=== PATIENT | female | born 1970 | race Caucasian/White ===

== ENCOUNTER 2017-05-02 16:03 | Observation (INO) | payer BC ==
[~2017-05-02] VITALS: Ht 152.4 cm; Wt 79.5 kg
--- NOTE | ~2017-05-02 | OP ---
PATIENT NAME: ALALN ALANIZ MEDICAL RECORD: [id number] :66 LOCATION:D.M2 D.2117 ADMISSION DATE:05/02/17 SURGEON: ALEX ANDUJAR MD DATE OF OPERATION: 05/03/2017 PROCEDURE: Left heart cath, plus 4-vessel arteriography, right femoral artery approach. CATHETERS: A 5-Portuguese sheath, 5/4 left and right Felipe, 5/4 pig. The procedure was well tolerated and the patient returned to martel, sheath removed. ExoSeal device was placed. FINDINGS: Left ventriculography in 30-degree DRIVER view: Normal wall motion, normal systolic function. CORONARY ANATOMY. LEFT MAIN: Left main is free of disease. LAD: Free of disease in the diagonal system. CIRCUMFLEX: Free of disease in the marginal system. RIGHT CORONARY ARTERY: Codominant system, free of disease. The right common carotid was selectively engaged and shows smooth-walled vessel, free of disease. The right external carotid is a smooth-walled vessel, free of disease. Right internal carotid is a smooth-walled vessel, free of disease. The Left common carotid was selectively engaged and shows smooth-walled vessel, free of disease. Left external carotid, smooth-walled vessel, free of disease. Left internal carotid, smooth-walled vessel, free of disease. IMPRESSION: Normal 4-vessel arteriography, normal diagnostic angiography, noncardiac cause of chest pain, syncope, suspect elevated troponins were secondary to IVVD. TRANSINT:[id number] Voice Confirmation ID: [id number] DOCUMENT ID: [id number] ALEX ANDUJAR MD CC: [id number] DICTATION DATE: 05/03/17901 KNOCKDOWN WORKER: 05/03/17 1036 ADM IN [facility] [id number] [place] [address]
--- NOTE | ~2017-05-02 | HEMODYNAMI ---
PATIENT:ALLAN ALANIZ MEDICAL RECORD: [id number] : 66 LOCATION:[facility].2117 ADMISSION DATE: 05/02/17 Generatedon:05/03/20178:58 Patient name: ALLAN ALANIZ Patient #: [id number] SSN: : 1970 Date of study: 05/03/2017 Page: Of Hemodynamic Procedure Report Patient Data Patient Demographics Procedure consent was obtained First Name: ALLAN Gender: Female Last Name: CORBIN : 1970 Patient #: [id number] Age: 47 year(s) Race: Accession #: Ethnicity: or [id number] Additional ID: [id number] Contact details [address]: [address] [place] [address] State: [place] City: [place] Zip code: [address] Past Medical History Allergies Allergen Reaction Date Comments Reported Other allergy 05/03/2017 N Admission Admission Data Admission Date: 05/02/2017 Admission Time: 16:03 Room #: D.2117 Lab Results Lab Result Date: 05/03/2017 Lab Result Time: 7:21 Biochemistry Name Units Result Min Max BUN mg/dl 12 --(-*--)-- 7 18 Creatinine mg/dl 1 --(--*-)-- 0.6 1.3 CBC Name Units Result Min Max Hematocrit % 43.1 --(*---)-- 42 54 Hemoglobin g/dl 14.3 --(*---)-- 13.5 17.5 Procedure Procedure Types Cath Procedure Diagnostic Procedure LHC LHC w/Coronaries Miscellaneous Procedures Moderate Sedation up to 30 minutes Peripheral Cath Diagnostic Procedure Cath Peripheral Four Vessel Arteriogram Procedure Description Procedure Date Procedure Date: 05/03/2017 Procedure Start Time: 8:39 Procedure End Time: 8:55 Procedure Staff Name Function Eliel Villela MD Performing Physician Celia Gómez RT Scrub German Kelley RT Scrub Benjamin Donaldosn RT Monitor Tirea Barnes RN Nurse Procedure Data Cath Procedure Fluoroscopy Diagnostic fluoroscopy Total fluoroscopy Time: 2 time: 2 min min Diagnostic fluoroscopy Total fluoroscopy dose: 252 dose: 252 mGy mGy Contrast Material Contrast Material Type Amount (ml) Isovue 300 73 Entry Location Entry Primary Successful Side Size Upsize Upsize Entry Closure Succes sful Closure Location (Fr) 1 (Fr) 2 (Fr) Remarks Device Remarks Femoral Right 5 Fr Exoseal artery Estimated blood loss: 5 ml Diagnostic catheters Device Type Used For End Catheter Placement Cordis 5Fr JL 4.0 Procedure Catheter (MP) Cordis 5Fr 3DRC Catheter Procedure (MP) Cordis 5Fr Pigtail Procedure Catheter (MP) Procedure Complications No complications Procedure Medications Medication Administration Route Dosage Oxygen NC 2 l/min Fentanyl I.V. 50 mcg Versed I.V. 1 mg Zofran I.V. 4 mg Fentanyl I.V. 25 mcg Versed I.V. 0.5 mg Hemodynamics Rest HGB: 14.3 (g/dl) Heart Rate: 73 (bpm) Pressure Samples Time Site Value (mmHg) Purpose Heart Use Rate(bpm) 8:52 LV 124/12,17 EDP 85 8:52 AO 131/85(107) Pullback 88 8:52 LV 115/17,19 Pullback 88 Gradients Valve Time Site 1 Site 2 Mean SEP/DFP Peak To Heart Use (mmHg) (sec/min) Peak Rate (mmHg) (bpm) Aortic 8:52 LV AO 0 11 0 88 115/17,19 131/85(107) Calculations Valve P-P Mean Valve Index Valve Source Name Gradient Area Flow (cm2) Aortic 0 0 0 0 Snapshots Pre Cath Intra NCS Post Cath Vital Signs Time Heart Resp SPO2 etCO2 GT0fcea NIBP (mmHg) Rhythm Pain Sedation Rate (ipm) (%) (mmHg) (mmHg) Status Level (bpm) 8:21:31 57 16 100 0 0 140/83(121) NSR 0 (11) 10(A) , No pain 8:26:14 79 17 100 0 0 136/88(116) NSR 0 (11) 10(A) , No pain 8:30:56 82 16 100 0 0 123/85(102) NSR 0 (11) 10(A) , No pain 8:35:37 85 16 100 0 0 124/85(99) NSR 0 (11) 10(A) , No pain 8:40:17 87 18 100 0 0 120/72(97) NSR 0 (11) 9(A) , No pain 8:45:00 78 20 100 0 0 114/76(93) NSR 0 (11) 9(A) , No pain 8:49:41 85 20 100 0 0 124/77(94) NSR 0 (11) 9(A) , No pain 8:54:23 84 18 100 0 0 112/78(98) NSR 0 (11) 9(A) , No pain Medications Time Medication Route Dose Verified Delivered Reason Notes Effectivene ss by by 8:25:58 Oxygen NC 2 Tiera Tiera used for l/min Barnes Barnes tumbler tender RN 8:39:01 Fentanyl I.V. 50 Tiera Tiera for mcg Barnes Barnes sedation RN RN 8:39:08 Versed I.V. 1 mg Tiera Tiera for Barnes Barnes sedation RN RN 8:39:18 Zofran I.V. 4 mg Tiera Tiera Per Barnes Barnes physician RN RN 8:40:37 Fentanyl I.V. 25 Tiera Tiera for mcg Barnes Barnes sedation RN RN 8:40:41 Versed I.V. 0.5 Tiera Tiera for mg Barnes Barnes sedation RN superintendent of generation Log Time Note 8:02:46 Informed consent obtained and on chart 8:02:53 Diagnostic Cath Status : Elective 8:04:04 Reinaldo Rodgers RT(R) (CV) sent for patient. Start room use. 8:04:06 Time tracking: Regular hours 8:04:12 Plan of Care:Hemodynamics will remain stable., Cardiac rhythm will remain stable., Comfort level will be maintained., Respiratory function will remain adequate., Patient/ family verbilizes understanding of procedure., Procedure tolerated without complication., Recovers from procedure without complications.. 8:16:16 Patient received from Med II to CCL 1 Alert and oriented. Tansferred to table in Supine position. 8:16:17 Warm blankets applied, and samy hugger turned on for patient comfort. 8:16:18 Correct patient and procedure confirmed by team. 8:16:19 ECG and BP/O2 sat monitors applied to patient. 8:17:01 H&P Date Dictated: 04/02/2017 Within 30 days and on chart.. 8:17:03 Pre-procedure instructions explained to patient. 8:17:03 Pre-op teaching completed and patient verbalized understanding. 8:17:04 Family in patients room. 8:17:10 Patient NPO since Midnight. 8:17:29 Patient allergic to Other allergyPCN 8:17:31 Is the patient allergic to Iodine/contrast media? No. 8:17:32 Is patient on blood thinner?No 8:17:33 Patient diabetic? No. 8:17:36 Previous problem with sedation/anesthesia? No ? 8:17:37 Snore? Yes 8:17:38 Sleep apnea? Yes 8:17:39 Deviated septum? No 8:17:40 Opens mouth fully? Yes 8:17:41 Sticks out tongue? Yes 8:17:42 Airway obstruction? No ? 8:17:43 Dentures? No ? 8:18:00 Patient pain scale 0/10 ?. 8:18:06 IV patent on arrival in left antecubital with 0.9% NaCl at [facility]. 8:18:32 Lab Result : BUN 12 mg/dl 8:18:32 Lab Result : Creatinine 1 mg/dl 8:18:35 Lab results completed and on chart. 8:18:37 Right groin area was prepped with chlora-prep and draped in sterile fashion 8:18:38 Alarms reviewed by R. N. 8:18:39 Sharps counted by scrub and verified by R.N. 8:18:41 Use device set Femoral Dx 8:18:42 Tegaderm 4 x 4 opened to sterile field. 8:18:43 Acist Manifold opened to sterile field. 8:18:43 Acist Hand Control opened to sterile field. 8:18:44 Acist Syringe opened to sterile field. 8:18:45 Bag Decanter opened to sterile field. 8:18:45 Medline Cath Pack opened to sterile field. 8:18:46 Terumo 5Fr Radford Sheath opened to sterile field. 8:18:46 St Devin 260cm J .035 wire opened to sterile field. 8:18:47 Diagnostic Infinity 5Fr Multipack catheter opened to sterile field. 8:20:36 Vital chart was started 8:20:38 Baseline sample Acquired. 8:20:42 Rhythm: sinus rhythm 8:25:58 Oxygen 2 l/min NC was administered by Tiera Barnes RN; used for procedure; 8:33:49 Zero performed for pressure channel P1 8:35:43 IV Extension Set opened to sterile field. 8:35:48 Physician arrived 8:35:48 --------ALL STOP TIME OUT------ 8:35:48 Final Timeout: patient, procedure, and site verified with staff and physician. All members of the team are in agreement. 8:35:50 Right groin site verified by team. 8:35:52 Physical assessment completed. ASA score P 2 - A patient with mild systemic disease as per Eliel Villela MD. 8:35:55 Sedation plan: IV Moderate Sedation Versed, Fentanyl 8:39:01 Fentanyl 50 mcg I.V. was administered by Tiera Barnes RN; for sedation; 8:39:08 Versed 1 mg I.V. was administered by Tiera Barnes RN; for sedation; 8:39:18 Zofran 4 mg I.V. was administered by Tiera Barnes RN; Per physician; 8:39:44 Procedure started. 8:39:45 Full Disclosure recording started 8:39:47 Local anesthetic to right femoral artery with Lidocaine 2% by Eliel Villela MD.INITIAL ACCESS ONLY 8:40:34 A 5 Fr sheath was inserted into the Right Femoral artery 8:40:37 Fentanyl 25 mcg I.V. was administered by Tiera Barnes RN; for sedation; 8:40:41 Versed 0.5 mg I.V. was administered by Tiera Barnes RN; for sedation; 8:47:00 Use device set Multipack Set 8:47:04 A Cordis 5Fr JL 4.0 Catheter (MP) was advanced over the wire and used for Procedure. 8:47:08 LCA angiography performed. 8:47:48 Catheter exchanged over wire. 8:47:58 A Cordis 5Fr 3DRC Catheter (MP) was advanced over the wire and used for Procedure. 8:49:00 RCA angiography performed. 8:49:08 Lab Result : Hemoglobin 14.3 g/dl 8:49:08 Lab Result : Hematocrit 43.1 % 8:49:26 Right carotid angiography performed. 8:50:17 Left carotid angiography performed. 8:50:46 Catheter exchanged over wire. 8:50:50 A Cordis 5Fr Pigtail Catheter (MP) was advanced over the wire and used for Procedure. 8:52:00 Cordis 5Fr Exoseal opened to sterile field. 8:52:14 LV gram done using DRIVER 8:52:20 Injector settings: Ml/sec: 10, Volume: 20, 8:52:24 EF : 60 % 8:52:32 Catheter removed. 8:52:43 Sheath removed intact; hemostasis achieved with Exoseal to the Right Femoral artery. 8:52:54 Procedure ended.(Physican Out) 8:54:20 Fluoroscopy time 02.00 minutes. 8:54:23 Fluoroscopy dose: 252 mGy 8:54:23 Flurop Dose total: 252 8:54:27 Contrast amount:Isovue 300 73ml. 8:54:28 Sharps counted by scrub and verified by R.N. 8:54:29 Insertion/operative site no bleeding no hematoma. 8:54:32 Post-op/insertion site Right Femoral artery dressed using a 4 x 4 and Tegaderm. 8:54:35 Post right femoral artery:stable, soft, clean and dry 8:54:37 Post Procedure Pulses reassessed and unchanged 8:54:39 Post-procedure physical assessment completed. ASA score P 2 - A patient with mild systemic disease as per Eliel Villela MD. 8:54:41 Post procedure rhythm: unchanged. 8:54:44 Estimated blood loss: 5 ml 8:54:46 Post procedure instruction explained to patient.Patient verbalizes understanding. 8:54:46 Patient needs reinforcement of post procedure teaching. 8:55:22 Procedure type changed to Cath procedure, Diagnostic procedure, LHC, LHC w/Coronaries, Miscellaneous Procedures, Moderate Sedation up to 30 minutes, Peripheral Cath Diagnostic Procedure, Cath Peripheral, Four Vessel Arteriogram 8:55:44 Procedure and supply charges have been captured, reviewed, submitted and are correct. 8:55:47 Procedure Complication : No complications 8:55:51 Vital chart was stopped 8:55:51 See physician's report for complete and final results. 8:55:53 Report given to PCU. 8:55:56 Patient transfered to PCU with Stretcher. 8:55:58 Procedure ended. 8:55:58 Full Disclosure recording stopped 8:57:19 End room use (Document Last) Device Usage Item Name Manufacture Quantity Catalog Hospital Part Current Minimal Lo t# / Number Charge Number Stock Stock Serial# Code Tegaderm 4 1 [id number] [id number] 5 x 4 Acist Acist 1 39720 129742 206741 989388 5 Manifold [employer] Inc Acist Hand Acist 1 08404 736886 336796 332209 5 Control [employer] Inc Acist Acist 1 59942 870848 968231 610206 20 Syringe Medical Systems Inc Bag Microtek 1 2002S 943814 29811 216269 5 Decanter Medical Inc. Medline Cardinal 1 [id number] 151175 05909 525484 5 Cath Pack Health Terumo 5Fr Terumo 1 [id number] 303270 863207 167501 [address] [facility] Devin 1 502150 592979 191814 726334 30 260cm J .035 wire Diagnostic Cardinal 1 [id number] 769526 67612 153608 30 Infinity Health 5Fr Multipack catheter IV Hospira 1 01739-70 570595 89764 073882 5 Extension Set Cordis 5Fr Cardinal 1 615762 5 JL 4.0 Health Catheter (MP) Cordis 5Fr Cardinal 1 821757 5 3DRC Health Catheter (MP) Cordis 5Fr Cardinal 1 393737 5 Pigtail Health Catheter (MP) Cordis 5Fr Cardinal 1 EX500 220695 673326 350642 10 [employer] Health Signature Audit [place] Stage Time Signature Unsigned Intra-Procedure 05/03/2017 Benjamin Donaldson 8:58:28 AM RT(R) Signatures Monitor : Benjamin Donaldson RT Signature : Date : Time : [facility] [address] [place] [address]
--- NOTE | ~2017-05-02 | HP ---
PATIENT: ALLAN ALANIZ MEDICAL RECORD: [id number] ACCOUNT: [id number] LOCATION:. D.2117 : 66 ADMISSION DATE: 05/02/17 HISTORY AND PHYSICAL EXAMINATION HISTORY OF PRESENT ILLNESS: A 47-year-old lady with a known history of coronary artery disease, status post intervention by Dr. Roe approximately 5 years ago. She has a history of hypothyroidism, hypertension and has been doing fairly well. Recently, her thyroid increased. Approximately 2 weeks ago, she has been working outside, not staying well hydrated, had an episode of chest pain followed by syncope, this was while washing dishes. Questionable some vagal component with profuse diaphoresis and nausea, has been having intermittent dyspnea on exertion, although this may be decreasing. She was found to have borderline positive enzymes, although not well hydrated and transferred here for further evaluation. PAST MEDICAL HISTORY: Includes: 1. History of hypertension. 2. Hyperlipidemia. 3. Coronary artery disease as described above with intervention via Dr. Roe. ALLERGIES: PENICILLIN, AMLODIPINE WITH AMLODIPINE CAUSING EDEMA. MEDICATIONS: Typically include lisinopril 10 every day, Naprosyn 225 b.i.d., Omeprazole 40 every day, and Synthroid 37.5 mcg every day. SOCIAL HISTORY: Lives in [place]. Nonsmoker. She takes care of her ADLs. Works outside with no set exercise program. REVIEW OF SYSTEMS: The patient reports easy bruising but reports no swollen glands. The patient reports no fever, no night sweats, no significant weight gain, no significant weight loss. No significant exercise tolerance. The patient reports no dry eyes, no irritation, no vision change. Patient reports no difficulty hearing and no ear pain. Patient reports no frequent nose bleeds or nose and sinus problems. Patient reports on arm pain on exertion. No shortness of breath while lying down. No history of heart murmur. Patient reports no cough, no wheezing or coughing up blood. Patient reports no abdominal pain, no vomiting. Normal appetite. No diarrhea and not vomiting blood. No nausea and no constipation. Patient reports no incontinence. No difficulty urinating. No hematuria. No increased frequency. Patient reports no muscle aches. No weakness, no arthralgias, no back pain. No swelling of the extremities. Patient reports no abnormal mole, no jaundice, no rashes. Reports no loss of consciousness. No weakness and no numbness. No seizures, dizziness, or headaches. The patient reports no depression, no sleep disturbance, feeling safe in a relationship and no alcohol abuse. Patient reports on fatigue. Reports no runny nose or sinus pressure. No itching, no hives, and no frequent sneezing. PHYSICAL EXAMINATION: GENERAL: Well-developed, well-nourished female in no acute distress, appears stated age. HEENT: Normocephalic, atraumatic. NECK: No JVD or bruit. HEART: Regular. LUNGS: Gómez clear. HISTORY AND PHYSICAL [id number] CORBIN,ALLAN EXTREMITIES: Pulses 2+. No edema. NEUROLOGIC: Grossly intact. DIAGNOSTIC DATA: ECG shows mild ST-T changes consistent with possible LVH. Enzymes are marginal and declining in the face of IVVD. PLAN: We will plan for diagnostic angiography, intervention based on above. TRANSINT:[id number] Voice Confirmation ID: [id number] DOCUMENT ID: [id number] ALEX ANDUJAR MD CC: [id number] DICTATION DATE: 05/03/17816 AEROSPACE MEDICINE PHYSICIAN: 05/03/17921 ADM IN [facility] [address] [place] [address]
[~2017-05-02 16:03] MED LIST: BAYER CHEWABLE81 MG PO; PLAVIX75 MG PO; TOPROL XL50 MG PO
--- NOTE | 2017-05-02 16:10 | NUR ---
PATIENT ARRIVED VIA EMS AND ADMITTED TO ROOM 2116. ALERT/OREINTED. PLACED ON TELEMETRY. PATIENT COMPLAINS OF CHEST PAIN RANGING FROM DULL TO SHARP AND RADIATING. 20 GAUGE IV SALINE LOCKED TO LEFT FOREARM. CALL LIGHT PLACED WITHIN REACH. NO DISTRESS.
[2017-05-02] MEDS ORDERED: LISINOPRIL10 MG PO (16:14)
[2017-05-02] MEDS ORDERED: OMEPRAZOLE40 MG PO (16:16)
[2017-05-02] MEDS ORDERED: SYNTHROID25 MCG PO (16:16)
[2017-05-02] MEDS ORDERED: COENZYME Q1030 MG PO (16:17)
[2017-05-02] MEDS ORDERED: ALEVE220 MG PO (16:18)
[2017-05-02 17:50] VITALS: BP 140/91; Ht 152.4 cm; Wt 79.5 kg
[2017-05-02 20:00] VITALS: BP 109/72
--- NOTE | 2017-05-03 02:08 | NUR ---
PT RESTING WITH EYES CLSED AND RESP EVEN UNLABORED. CALL LIGHT WITHIN REACH. NO NEEDS VOICED. WILL CONT TO MONITOR.
[2017-05-03 04:00] VITALS: BP 104/59
--- NOTE | 2017-05-03 06:04 | NUR ---
PT SIGNS INFORMED BLOOD CONSENT FOR CATH THIS AM. CONSENTS PLACED ON FRONT OF CHART.
[2017-05-03 07:58] LABS: BASOPHILS 0.5 % (0-2); EOSINOPHILS 1.5 % (0-7); HEMATOCRIT 43.1 % (36.0-48.0); HEMOGLOBIN 14.3 g/dL (12-16); IMMATURE GRANULOCYTES 0.1 % (0-5); LYMPHOCYTES 31.1 % (15-50); MCH 28.8 pg (26.0-34.0); MCHC 33.2 g/dL (31.0-37.0); MCV 86.9 fL (80.0-100.0); MONOCYTES 10.4 % (2-11); NEUTROPHILS 56.4 % (40-80); PLATELET COUNT 284 10x3/uL (130-400); RBC 4.96 10x6/uL (4.00-5.40); RDW 13.9 % (11.5-14.5); WBC 8.2 10x3/uL (4.8-10.8)
[2017-05-03 08:00] VITALS: BP 126/80
[2017-05-03 08:04] LABS: ANION GAP 11.2 mmol/L (8-16); CALCIUM 9.5 mg/dL (8.5-10.1); CARBON DIOXIDE 28.6 mmol/L (21.0-32.0); POTASSIUM - SERUM 4.8 mmol/L (3.5-5.1)
--- NOTE | 2017-05-03 08:15 | NUR ---
PRE-OPS GIVEN. TO FLOW MANAGER BY BED.
--- NOTE | 2017-05-03 09:12 | NUR ---
BACK FROM PATIENT REGISTRATION SUPERVISOR. VS WNL. RIGHT GROIN STBLE WITHOUT BLEEDING OR HEMATOMA NOTED. WILL MONITOR.
--- NOTE | 2017-05-03 11:09 | NUR ---
BED REST UP. GROIN STABLE.
--- NOTE | 2017-05-03 11:43 | NUR ---
IV AND TERLEMETRY DCD. DC PLANS GIVEN. UNDERSTANDING VOICED. ESCORTED TO CAR BY W/C.
== END 2017-05-03 11:44 | disposition home or self-care (01) ==
LOC: D.M2 16:03 → OBSVTIME 16:03 → D.M2 05-03 11:44
PROVIDERS: ADMIT Internal Medicine Interventional Cardiology
DX: R07.89 Other chest pain (principal); R55 Syncope and collapse; E86.9 Volume depletion, unspecified; I10 Essential (primary) hypertension; I25.10 Atherosclerotic heart disease of native coronary artery without angina pectoris; E78.5 Hyperlipidemia, unspecified